=== PATIENT | female | born 1940 | race Caucasian/White ===

== ENCOUNTER 2016-11-28 12:26 | Inpatient (IN) | payer MEDICARE, MEDICAID ==
[~2016-11-28] VITALS: Ht 160 cm; Wt 89.1 kg
[2016-11-28] VITALS (371 sets, daily range): BP systolic 107–153; BP diastolic 40–98; PULSE 97–98; TEMP 96.3–97; O2SAT 90–100
[2016-11-28 14:01] LABS: PH 8 (5-8); SQUAMOUS EPITHELIAL None Seen /hpf; URINE APPEARANCE Turbid; URINE BACTERIA Many /hpf; URINE BILIRUBIN Negative (NEGATIVE); URINE BLOOD 3+ (NEGATIVE); URINE COLOR Amber; URINE GLUCOSE Negative (NEGATIVE); URINE KETONE Trace (NEGATIVE); URINE RBC >50 /hpf; URINE UROBILINOGEN Negative (NEGATIVE); URINE WBC >50 /hpf
[2016-11-28 14:05] LABS: HEMATOCRIT 39.2 % (37.0-47.0); HEMOGLOBIN 12.4 g/dl (12.5-16.0); MEAN CELL VOLUME 100 fl (80.0-100.0); MEAN CORPUSCULAR HEMOGLOBIN 32 pg (27.0-31.0); MEAN CORPUSCULAR HGB CONC 32 g/dl (33.0-37.0); MEAN PLATELET VOLUME 9.4 fl (7.4-10.4); PLATELET COUNT 277 K/mm3 (130-400); RED BLOOD COUNT 3.93 M/mm3 (4.10-5.30); REDCELL DISTRIBUTION WIDTH-CV 14.1 % (11.5-14.5)
[2016-11-28 14:09] LABS: INR 1.6 (0.8-3.0); PROTHROMBIN TIME 17.9 SECONDS (9.7-12.8)
[2016-11-28 14:11] LABS: PARTIAL THROMBOPLASTIN TIME 44.6 SECONDS (26.0-37.0)
[2016-11-28 14:26] LABS: ADJUSTED CALCIUM 9.5 mg/dL (8.4-10.2); ALBUMIN 2.6 gm/dL (3.5-5.0); BILIRUBIN,TOTAL 2.2 mg/dL (0.0-1.0); C-REACTIVE PROTEIN 4.7 mg/dL (0.0-0.9); CALCIUM 8.4 mg/dL (8.4-10.2); CREATININE, serum 2.28 mg/dL (0.52-1.25); TOTAL PROTEIN 6.1 gm/dL (6.4-8.2)
[2016-11-28 14:31] LABS: WHITE BLOOD COUNT 32.8 K/mm3 (4.8-10.8)
[2016-11-28 14:39] LABS: POTASSIUM 7.1 mmol/L (3.4-5.0)
[2016-11-28 14:40] LABS: TROPONIN-I 0.089 ng/mL (0.000-0.034)
[2016-11-28 15:07] LABS: MYELOCYTE 1 % (0-0)
[2016-11-28 15:44] LABS: BAND 71 % (0-10); METAMYELOCYTE 2 % (0-0); NEUTROPHILS 19 % (42.0-75.2)
[2016-11-28 15:47] LABS: PLATELET ESTIMATE NORMAL (NORMAL)
[2016-11-28 15:48] LABS: ADD PATHOLOGY DIFF REVIEW YES
[2016-11-28 16:04] LABS: TOTAL CELLS COUNTED 200
[2016-11-28] MEDS ORDERED: TYLENOL 325MG325 MG PO (16:07)
[2016-11-28] MEDS ORDERED: LIQUIFILM TEARS15 ML OU (16:08)
[2016-11-28] MEDS ORDERED: CATAPRES 0.1MG0.1 MG PO (16:10)
[2016-11-28] MEDS ORDERED: CATAPRES0.2 MG PO (16:15)
[2016-11-28] MEDS ORDERED: COLACE 100100 MG/CAP PO (16:15)
[2016-11-28 16:16] LABS: ARTERIAL BLD GAS O2 SATURATION 95.4 % (92-100); ARTERIAL BLD GAS TCO2 CT 9.2; ARTERIAL BLOOD GAS BASE EXCESS -17.8 (-2-2); ARTERIAL BLOOD GAS HCO3 8.5 meq/L (22-26); ARTERIAL BLOOD GAS PO2 96.6 mmHg (80-100); ARTERIAL BLOOD GAS PO2T 96.6 (80-100); OXYHEMOGLOBIN 94.4 %
[2016-11-28] MEDS ORDERED: GENTEALSEVERE OP (16:16)
[2016-11-28] MEDS ORDERED: MAG-AL PLUS 3030 ML PO (16:17)
[2016-11-28] MEDS ORDERED: LEVEMIR100 U/ML SQ (16:18)
[2016-11-28 16:19] LABS: ATS? YES
[2016-11-28] MEDS ORDERED: ZESTRIL 20MG TA20 MG PO (16:19)
[2016-11-28] MEDS ORDERED: LIPITOR 10MG10 MG PO (16:19)
[2016-11-28 16:31] LABS: ERYTHROCYTE SEDIMENTATION RATE 2 mm/hr (0-30)
[2016-11-28] MEDS ORDERED: ATIVAN 0.50.5 MG/TAB PO (16:36)
[2016-11-28] MEDS ORDERED: MILK OF MA400 MG/52 PO (16:38)
[2016-11-28] MEDS ORDERED: ALEVE 220MG220 MG PO (16:39)
[2016-11-28] MEDS ORDERED: NOVOLOG 100U100 U/M1 SQ ×2 (16:40→16:41)
[2016-11-28] MEDS ORDERED: ROBITUSSIN100 MG/5 M PO (16:41)
[2016-11-28] MEDS ORDERED: BETIMOL 0.5% OPH5 ML OU (16:42)
[2016-11-28] MEDS ORDERED: ULTRAM 50MG TAB50 MG PO ×2 (16:42→16:43)
[2016-11-28] MEDS ORDERED: TRAVATAN Z 5 ML5 ML OU (16:43)
[2016-11-28] MEDS ORDERED: VICKS VAPORUB 41 OIN TP (16:44)
[2016-11-28 19:27] LABS: CALCIUM 8.4 mg/dL (8.4-10.2); CREATININE, serum 2.12 mg/dL (0.52-1.25)
[2016-11-28 19:30] LABS: POTASSIUM 6.1 mmol/L (3.4-5.0)
[2016-11-29] VITALS (567 sets, daily range): BP systolic 96–136; BP diastolic 42–53; PULSE 83–89; TEMP 95.8–96.8; O2SAT 79–100
[2016-11-29 01:03] LABS: CREATININE, serum 2.1 mg/dL (0.52-1.25)
[2016-11-29 01:12] LABS: POTASSIUM 6.4 mmol/L (3.4-5.0)
[2016-11-29 04:38] LABS: MEAN CELL VOLUME 102 fl (80.0-100.0); MEAN CORPUSCULAR HGB CONC 31 g/dl (33.0-37.0); MEAN PLATELET VOLUME 9.4 fl (7.4-10.4); PLATELET COUNT 218 K/mm3 (130-400); RED BLOOD COUNT 3.27 M/mm3 (4.10-5.30); REDCELL DISTRIBUTION WIDTH-CV 14.5 % (11.5-14.5)
[2016-11-29 04:47] LABS: HEMATOCRIT 33.4 % (37.0-47.0); HEMOGLOBIN 10.4 g/dl (12.5-16.0); MEAN CORPUSCULAR HEMOGLOBIN 32 pg (27.0-31.0); WHITE BLOOD COUNT 56.4 K/mm3 (4.8-10.8)
[2016-11-29 04:48] LABS: ADD PATHOLOGY DIFF REVIEW NO; INR 2.9 (0.8-3.0); PROTHROMBIN TIME 33.3 SECONDS (9.7-12.8)
[2016-11-29 04:51] LABS: PARTIAL THROMBOPLASTIN TIME 53.8 SECONDS (26.0-37.0)
[2016-11-29 04:56] LABS: ADJUSTED CALCIUM 9.8 mg/dL (8.4-10.2); ALBUMIN 1.9 gm/dL (3.5-5.0); CALCIUM 8.1 mg/dL (8.4-10.2); CREATININE, serum 2.23 mg/dL (0.52-1.25); TOTAL PROTEIN 4.8 gm/dL (6.4-8.2)
[2016-11-29 05:00] LABS: POTASSIUM 6.3 mmol/L (3.4-5.0)
[2016-11-29 05:57] LABS: BAND 67 % (0-10); TOTAL CELLS COUNTED 100
[2016-11-29 05:58] LABS: NEUTROPHILS 30 % (42.0-75.2)
[2016-11-29 07:19] LABS: CALCIUM 7.8 mg/dL (8.4-10.2); CREATININE, serum 2.31 mg/dL (0.52-1.25)
[2016-11-29 07:40] LABS: POTASSIUM 6.2 mmol/L (3.4-5.0)
== END 2016-11-29 12:30 | disposition expired | DRG 871 ==
LOC: COL.ER 12:26 → ICU 16:05
PROVIDERS: Emergency Medicine; Internal Medicine; Nurse Practitioner Family
PROC: 02HV33Z Insertion of Infusion Device into Superior Vena Cava, Percutaneous Approach (ICD-10-PCS; principal; 2016-11-28)
DX: A41.89 Other specified sepsis (principal); K65.0 Generalized (acute) peritonitis; K63.1 Perforation of intestine (nontraumatic); R65.21 Severe sepsis with septic shock; N39.0 Urinary tract infection, site not specified; N17.9 Acute kidney failure, unspecified; E87.2 Acidosis; D68.9 Coagulation defect, unspecified; Z66 Do not resuscitate; B96.4 Proteus (mirabilis) (morganii) as the cause of diseases classified elsewhere; E11.9 Type 2 diabetes mellitus without complications; Z79.4 Long term (current) use of insulin; H54.0 Blindness, both eyes; E87.5 Hyperkalemia; I10 Essential (primary) hypertension
CPT/HCPCS: 99233-AI; A6248; C1751; C1894; C9113; J0610; J0696; J1644; J1815; J2543; J3370; J7030; J7050